=== PATIENT | female | born 2005 | race Caucasian/White ===

== ENCOUNTER 2023-06-29 09:12 | Emergency (ER) | payer SELFPAY ==
[~2023-06-29] VITALS: Ht 167.6 cm; Wt 59.1 kg
[2023-06-29 09:16] VITALS: BP 95/65; PULSE 76; TEMP 98
== END 2023-06-29 11:48 | disposition home or self-care (01) ==
LOC: COL.ER 09:12
DX: T76.21XA Adult sexual abuse, suspected, initial encounter (principal)